=== PATIENT | female | born 1985 | race African-American/Black ===

== ENCOUNTER 2020-02-29 09:00 | Inpatient (IN) | payer OTHER ==
--- NOTE | 2020-02-29 09:30 | HP ---
Past Medical History - Admission Chief Complaint: chronic HTN at 39 weeks. History Source: Patient Limitations to Obtaining History: No Limitations - Past Medical History ...: 4 ...Para: 3 ...EDC by Debra: 03/02/20 - Past Surgical History Hx Myomectomy: No Hx Transabdominal Cerclage: No Additional Surgical History: ectopic - Smoking History Smoking history: Never smoked Have you smoked in the past 12 months: No - Alcohol/Substance Use Hx Alcohol Use: No History of Substance Use: reports: None - Social History Usual Living Arrangement: Yes: With Spouse Do you think of yourself as: Straight/Heterosexual History of Recent Travel: No Review of Systems - Review of Systems Constitutional: reports: No Symptoms Eyes: reports: No Symptoms HENT: reports: No Symptoms Neck: reports: No Symptoms Cardiovascular: reports: No Symptoms Respiratory: reports: No Symptoms Gastrointestinal: reports: No Symptoms Genitourinary: reports: No Symptoms Breasts: reports: No Symptoms Reported Musculoskeletal: reports: No Symptoms Integumentary: reports: No Symptoms Neurological: reports: No Symptoms Endocrine: reports: No Symptoms Hematology/Lymphatic: reports: No Symptoms Psychiatric: reports: No Symptoms Assessment/Plan imp IUP at 39+ weeks chronic HTN, plan induction of labor.
[2020-02-29] MEDS ORDERED: AMPICILLIN - 2 GM in SODIUM CHLORIDE 100 ML IVPB ONE (09:35)
[2020-02-29] MEDS ORDERED: AMPICILLIN - 1 GM in SODIUM CHLORIDE 100 ML IVPB SCH (09:45)
[2020-02-29] MEDS: ELECTROLYTE-148 SOLN 1,000 ML IV SCH (10:00)
[2020-02-29 10:26] VITALS: BMI 33.4
[2020-02-29 10:40] LABS: BASO % 0.9 % (0-2.0); EOS % 0.6 % (0-4.5); HEMATOCRIT 40.7 % (32.4-45.2); HEMOGLOBIN 13.8 GM/dL (10.7-15.3); LYMPH % 26.2 % (8-40); MCH 30.9 pg (25.7-33.7); MCHC 33.9 g/dl (32.0-36.0); MEAN CELL VOLUME 91.2 fl (80-96); MEAN PLT VOLUME 8.5 fl (7.5-11.1); MONO % 6.5 % (3.8-10.2); NEUT % 65.8 % (42.8-82.8); PLATELET COUNT 253 K/MM3 (134-434); RBC 4.46 M/mm3 (3.60-5.2); RDW 15.5 % (11.6-15.6); WHITE BLOOD COUNT 6.1 K/mm3 (4.0-10.0)
[2020-02-29 10:47] LABS: INR 0.95 (0.83-1.09); PROTHROMBIN TIME (PATIENT) 11.2 SEC (9.7-13.0)
[2020-02-29 11:07] LABS: BLOOD UREA NITROGEN 7.9 mg/dL (7-18); CALCIUM 9.5 mg/dL (8.5-10.1); CREATININE 0.7 mg/dL (0.55-1.3); POTASSIUM 3.9 mmol/L (3.5-5.1)
[2020-02-29] MEDS ORDERED: AMPICILLIN SODIUM 2 GM VIAL ONE (11:43)
[2020-02-29] MEDS ORDERED: DINOPROSTONE 10 MG VAGINAL SUPPOSITORY VG ONE ×2 (13:00→23:56)
[2020-02-29] MEDS: AMPICILLIN - 1 GM in SODIUM CHLORIDE 100 ML IVPB SCH ×2 (16:00→20:02)
[2020-02-29] MEDS ORDERED: AMPICILLIN SODIUM 1 GM VIAL ONE ×2 (16:04→19:57)
[2020-02-29] MEDS ORDERED: SODIUM CHLORIDE 100 ML IVPB ONE (19:57)
[2020-03-01] MEDS: AMPICILLIN - 1 GM in SODIUM CHLORIDE 100 ML IVPB SCH ×6 (00:04→20:15)
--- NOTE | 2020-03-01 00:04 | PN ---
Progress Note (short form) - Note Progress Note: 34 yo , EGA 39 weeks 5 days, with Chronic Hypertension on cervidil induction Afebrile. EFM - Baseline 140/min, moderate variability, accelerations, no decelerations Tocos - irritability Pelvic - 1cm/long/posterior Plan - Full term gestation on cervidil ripening Cervidil replaced. Anticipate vaginal delivery.
[2020-03-01] MEDS ORDERED: SODIUM CHLORIDE 100 ML IVPB ONE ×3 (00:09→20:13)
[2020-03-01] MEDS ORDERED: AMPICILLIN SODIUM 1 GM VIAL ONE ×6 (00:09→20:13)
[2020-03-01] MEDS: ELECTROLYTE-148 SOLN 1,000 ML IV SCH (09:00)
[2020-03-01] MEDS: LABETALOL HCL 200 MG TABLET (FP) PO SCH ×2 (10:30→22:38)
[2020-03-01] MEDS ORDERED: LABETALOL HCL 200 MG TABLET (FP) ONE ×2 (10:55→22:29)
[2020-03-01] MEDS ORDERED: DINOPROSTONE 10 MG VAGINAL SUPPOSITORY VG ONE ×2 (12:49→15:41)
--- NOTE | 2020-03-01 12:52 | PN ---
Progress Note (short form) - Note Progress Note: 34 y/o at 39w6d with CHTN undergoing IOL. Tracing category 1 Occasional contractions VE: 1/L/P Plan: Cervidil replaced Continue monitoring Reassess
--- NOTE | 2020-03-01 15:43 | PN ---
Progress Note (short form) - Note Progress Note: 34 y/o at 39w6d with CHTN undergoing IOL. Cervidil #3 fell out while patient ambulating - replaced. VE unchanged at 1/L/P.
[2020-03-02] MEDS: AMPICILLIN - 1 GM in SODIUM CHLORIDE 100 ML IVPB SCH ×6 (00:38→22:05)
[2020-03-02] MEDS ORDERED: SODIUM CHLORIDE 100 ML IVPB ONE ×3 (00:39→22:04)
[2020-03-02] MEDS ORDERED: AMPICILLIN SODIUM 1 GM VIAL ONE ×6 (00:39→22:04)
--- NOTE | 2020-03-02 09:35 | PN ---
Progress Note (short form) - Note Progress Note: pt without complaints. vss fhr: 140 reactive toco: irreg uc's ve: 09/21/soft/post. cervidil removed a/p iup at term iol for chr htn, gdm diet control s/p ripening w cervidil x 3 plan for po cytotec now per protocol pt. ate breakfast and would like a shower first now. will order 25 po to be given when back on monitor after shower (and > 30 min since cervidil removal). cont. close monitoring
[2020-03-02] MEDS ORDERED: LABETALOL HCL 200 MG TABLET (FP) ONE ×3 (10:20→22:05)
[2020-03-02] MEDS: LABETALOL HCL 200 MG TABLET (FP) PO SCH ×2 (10:22→22:05)
[2020-03-02] MEDS: MISOPROSTOL 100 MCG TABLET PV SCH ×3 (11:05→23:18)
[2020-03-02] MEDS: ELECTROLYTE-148 SOLN 1,000 ML IV SCH (12:50)
[2020-03-02] MEDS ORDERED: LABETALOL HCL 200 MG TABLET (FP) PO ONE (15:27)
[2020-03-02] MEDS ORDERED: MISOPROSTOL 100 MCG TABLET PO ONE (15:30)
[2020-03-02] MEDS ORDERED: OXYTOCIN 30 UNITS in 0.9% NS 30 UNIT/500 ML INFUS.BAG IVPB ONE (20:51)
[2020-03-02] MEDS: OXYTOCIN 30 UNITS in 0.9% NS 30 UNIT/500 ML INFUS.BAG IVPB SCH (20:52)
--- NOTE | 2020-03-02 21:07 | PN ---
Progress Note (short form) - Note Progress Note: 34 year old P2 at 39w+ undergoing IOL due to CHTN and GDM diet controlled On Labetalol s/p cervical ripening denies complaints VE -/-3 cat 1 tracing toco occasional contractions Plan Start Pitocin
[2020-03-03] MEDS ORDERED: OXYTOCIN 10 UNITS/ML VIAL ONE (01:30)
[2020-03-03] MEDS ORDERED: OXYTOCIN 20 UNITS in 0.9% NS 20 UNIT/1,000 ML INFUS.BAG IV ONE ×2 (01:31→06:04)
[2020-03-03] MEDS ORDERED: PROMETHAZINE HCL 25 MG/1 ML VIAL IVPB ONE (03:30)
[2020-03-03] MEDS ORDERED: BUTORPHANOL TARTRATE 1 MG/ML VIAL IVPB ONE (03:30)
[2020-03-03] MEDS ORDERED: BUTORPHANOL TARTRATE 1 MG/ML VIAL ONE ×2 (03:35)
[2020-03-03] MEDS ORDERED: PROMETHAZINE HCL 25 MG/1 ML VIAL ONE (03:35)
[2020-03-03] MEDS ORDERED: SODIUM CHLORIDE 100 ML IVPB ONE (04:01)
[2020-03-03] MEDS ORDERED: AMPICILLIN SODIUM 1 GM VIAL ONE (04:01)
[2020-03-03] MEDS: AMPICILLIN - 1 GM in SODIUM CHLORIDE 100 ML IVPB SCH ×2 (04:06→11:08)
--- NOTE | 2020-03-03 07:16 | PN ---
Progress Note (short form) - Note Progress Note: CHTN and GDM IOL Now in active labor s/p stadol and phenergan Complains of contractions VE /-3 Mod variability, Occ avery and early decels Irreg contractions Anticipate vag delivery
[2020-03-03] MEDS ORDERED: LABETALOL HCL 200 MG TABLET (FP) ONE (09:56)
[2020-03-03] MEDS: LABETALOL HCL 200 MG TABLET (FP) PO SCH ×2 (10:00→22:11)
[2020-03-03] MEDS: OXYTOCIN 20 UNITS in 0.9% NS 20 UNIT/1,000 ML INFUS.BAG IV SCH (10:00)
[2020-03-03] MEDS ORDERED: ACETAMINOPHEN 325 MG TABLET (FP) PO PRN (10:27)
[2020-03-03] MEDS ORDERED: IBUPROFEN 600 MG TABLET (FP) PO PRN (10:27)
[2020-03-03] MEDS ORDERED: BENZOCAINE 20% 57 GM BOTTLE TP PRN (10:27)
[2020-03-03] MEDS ORDERED: BENZOCAINE 28 GM HEMORRHOIDAL OINTMENT TP PRN (10:27)
[2020-03-03] MEDS ORDERED: BISACODYL 10 MG SUPP.RECT RC PRN (10:27)
[2020-03-03] MEDS ORDERED: METHYLERGONOVINE MALEATE 0.2 MG/1 ML AMP IM PRN (10:27)
[2020-03-03] MEDS ORDERED: WITCH HAZEL 50% (TUCKS) 40 PAD/JAR PAD TP PRN (10:27)
[2020-03-03] MEDS ORDERED: D5W-LR W/ 20 UNITS OXYTOCIN 20 UNIT/1,000 ML INFUS.BAG IV SCH (10:30)
--- NOTE | 2020-03-03 10:32 | PN ---
Delivery - Delivery Vaginal Delivery: No Problems, Spontaneous Type of Anesthesia: None Episiotomy/Laceration: None EBL (cc): 350 (, boy; intact perineum, abnormal cord insertion at edge) Delivery, Single - [place] Feeding Plan Initial Plan: Elected not to breastfeed exclusively throughout hospitalization
[2020-03-03] MEDS: MISOPROSTOL 100 MCG TABLET PV SCH ×2 (11:07→22:07)
[2020-03-03] MEDS: ELECTROLYTE-148 SOLN 1,000 ML IV SCH (17:13)
[2020-03-04 08:15] LABS: BASO % 0.3 % (0-2.0); EOS % 0.9 % (0-4.5); HEMATOCRIT 34.9 % (32.4-45.2); HEMOGLOBIN 11.6 GM/dL (10.7-15.3); LYMPH % 17.4 % (8-40); MCH 30.3 pg (25.7-33.7); MCHC 33.3 g/dl (32.0-36.0); MEAN CELL VOLUME 91.1 fl (80-96); MEAN PLT VOLUME 8.5 fl (7.5-11.1); MONO % 7.4 % (3.8-10.2); PLATELET COUNT 226 K/MM3 (134-434); RBC 3.83 M/mm3 (3.60-5.2); RDW 15.6 % (11.6-15.6); WHITE BLOOD COUNT 13.3 K/mm3 (4.0-10.0)
[2020-03-04] MEDS: LABETALOL HCL 200 MG TABLET (FP) PO SCH ×2 (10:12→22:28)
--- NOTE | 2020-03-04 12:14 | PN ---
Post Progress Note Post Day: 1 Type of Delivery: Vital Signs: Vital Signs Temperature 98.1 F 03/04/20 10:00 Pulse Rate 85 03/04/20 10:00 Respiratory Rate 18 03/04/20 10:00 Blood Pressure 121/77 03/04/20 10:00 O2 Sat by Pulse Oximetry (%) 100 03/03/20 11:15 Breast Exam: Yes: Soft Uterus: Yes: Fundus Firm, Fundus below umbilicus, Non-tender Abdomen/GI: Yes: Abdomen soft, Tolerating PO Lochia: Yes: Rubra Lochia, amount: Small Extremities: Yes: Calves non-tender Activity: Ambulating - Labs Labs: CBC WBC 13.3 K/mm3 (4.0-10.0) H 03/04/20 07:25 RBC 3.83 M/mm3 (3.60-5.2) 03/04/20 07:25 Hgb 11.6 GM/dL (10.7-15.3) 03/04/20 07:25 Hct 34.9 % (32.4-45.2) 03/04/20 07:25 MCV 91.1 fl (80-96) 03/04/20 07:25 MCH 30.3 pg (25.7-33.7) 03/04/20 07:25 MCHC 33.3 g/dl (32.0-36.0) 03/04/20 07:25 RDW 15.6 % (11.6-15.6) 03/04/20 07:25 Plt Count 226 K/MM3 (134-434) 03/04/20 07:25 MPV 8.5 fl (7.5-11.1) 03/04/20 07:25 Absolute Neuts (auto) 9.8 K/mm3 (1.5-8.0) H 03/04/20 07:25 Neutrophils % 74.0 % (42.8-82.8) 03/04/20 07:25 Lymphocytes % 17.4 % (8-40) D 03/04/20 07:25 Monocytes % 7.4 % (3.8-10.2) 03/04/20 07:25 Eosinophils % 0.9 % (0-4.5) 03/04/20 07:25 Basophils % 0.3 % (0-2.0) 03/04/20 07:25 Nucleated RBC % 0 % (0-0) 03/04/20 07:25 Assessment/Plan S/P , ppd # 1, no complaints Continue management.
[2020-03-04] MEDS: OXYTOCIN 30 UNITS in 0.9% NS 30 UNIT/500 ML INFUS.BAG IVPB SCH (19:03)
[2020-03-04] MEDS: MISOPROSTOL 100 MCG TABLET PV SCH (19:04)
[2020-03-04] MEDS: AMPICILLIN - 1 GM in SODIUM CHLORIDE 100 ML IVPB SCH ×2 (19:05→19:32)
[2020-03-04] MEDS: ELECTROLYTE-148 SOLN 1,000 ML IV SCH (19:05)
[2020-03-04] MEDS: OXYTOCIN 20 UNITS in 0.9% NS 20 UNIT/1,000 ML INFUS.BAG IV SCH (19:05)
[2020-03-04] MEDS ORDERED: SENNOSIDES/DOCUSATE COMBO (SENNA PLUS) TABLET (UD) PO PRN (22:00)
[2020-03-05] MEDS: LABETALOL HCL 200 MG TABLET (FP) PO SCH ×3 (09:30→21:22)
[2020-03-05] MEDS: NIFEdipine E.R. 30 MG TABLET PO SCH (16:52)
--- NOTE | 2020-03-05 16:53 | PN ---
Progress Note (short form) - Note Progress Note: pt. without complaints. denies LAWRENCE, visual disturbances or epigastric pain. BPs have been elevated to 140s-160s/80s-100s abd: soft, nt, nd, fundus firm ve: min lochia ext: dtr 1+/1+. 2+ edema b/l a/p ppd 2 s/p was iol for chr htn, gdm diet BPs elevated in labor intermittently and also now PP in same range was on labetalol 200 bid increased to 200 tid today and will add procardia 30 xl daily first dose now draw bloodwork (PET labs) above signed out to MD biofuels operations manager for further f/u , mgmt today. pt. aware unable to d/c to home today cont. close monitoring
[2020-03-05 18:55] LABS: BASO % 0.4 % (0-2.0); EOS % 2.2 % (0-4.5); HEMATOCRIT 38.6 % (32.4-45.2); HEMOGLOBIN 13.3 GM/dL (10.7-15.3); LYMPH % 29.4 % (8-40); MCH 31.6 pg (25.7-33.7); MCHC 34.4 g/dl (32.0-36.0); MEAN CELL VOLUME 92.1 fl (80-96); MEAN PLT VOLUME 8.6 fl (7.5-11.1); MONO % 7.3 % (3.8-10.2); NEUT % 60.7 % (42.8-82.8); PLATELET COUNT 257 K/MM3 (134-434); RBC 4.19 M/mm3 (3.60-5.2); RDW 15.6 % (11.6-15.6); WHITE BLOOD COUNT 10.6 K/mm3 (4.0-10.0)
[2020-03-05 19:06] LABS: INR 0.89 (0.83-1.09); PROTHROMBIN TIME (PATIENT) 10.5 SEC (9.7-13.0)
[2020-03-05 19:09] LABS: ACTIVATED PTT 25.8 SECONDS (25.2-36.5)
[2020-03-05 19:27] LABS: ALBUMIN 2.8 g/dl (3.4-5.0); BILIRUBIN,TOTAL 0.4 mg/dL (0.2-1); BLOOD UREA NITROGEN 9.8 mg/dL (7-18); CREATININE 0.8 mg/dL (0.55-1.3); POTASSIUM 3.9 mmol/L (3.5-5.1); URIC ACID 4.9 mg/dL (2.6-7.2)
[2020-03-06] MEDS: LABETALOL HCL 200 MG TABLET (FP) PO SCH ×2 (05:59→13:41)
[2020-03-06] MEDS: NIFEdipine E.R. 30 MG TABLET PO SCH (09:41)
[2020-03-06 10:15] VITALS: PULSE 76; TEMP 97.8
--- NOTE | 2020-03-06 12:28 | DS ---
Physical Exam-[employer] Vital Signs: Vital Signs Temperature 97.8 F 03/06/20 10:00 Pulse Rate 76 03/06/20 10:00 Respiratory Rate 20 03/06/20 10:00 Blood Pressure 132/83 03/06/20 10:00 O2 Sat by Pulse Oximetry (%) 100 03/03/20 11:15 Constitutional: Yes: No Distress Cardiovascular: Yes: Regular Rate and Rhythm Respiratory: Yes: Regular ....Post : Yes: Uterus firm, Slight lochia rubra Breast(s): Yes: WNL Musculoskeletal: Yes: WNL Extremities: Yes: WNL Edema: Yes Edema: LLE: 1+, RLE: 1+ Labs: CBC, BMP 03/05/20 17:50 03/05/20 17:50 Delivery - Delivery Vaginal Delivery: No Problems, Spontaneous Type of Anesthesia: None Episiotomy/Laceration: None EBL (cc): 350 (, boy; intact perineum, abnormal cord insertion at edge) Delivery, Single - Stages of Labor Date 1st Stage Initiatied: 03/02/20 Time 1st Stage Initiated: 21:00 Date 2nd Stage Initiated: 03/03/20 Time 2nd Stage Initiated: 09:25 Date of Delivery: 03/03/20 Time of Delivery: 09:33 Time Placenta Delivered: 09:40 - Condition of Infant Cad Draftsman/Development Vice President Present: [place]: Sada Samaniego Gender: Male Weight: 3.118 kg Position: Left, OA Total Hours ROM (Hrs/Mins): 11hrs/50mins - 1 Minute Total Score: 9 5 Minutes Total Score: 9 - Feeding Plan Initial Plan: Elected not to breastfeed exclusively throughout hospitalization Remarks - Remarks Remarks: PP day 3 HTN denies LAWRENCE discharge on labetolol and procardia follow up in clinic one week and refer to medical clinic also Discharge Summary Problems reviewed: Yes Reason For Visit: INDUCTION OF LABOR Plan of Treatment: follow up at office and PCP in one week Condition: Good - Instructions Diet, Activity, Other Instructions: regular Referrals: Oj Garcia MD [Staff Physician] - Disposition: HOME - Home Medications Comprehensive Discharge Medication List: Ambulatory Orders Labetalol HCl [Normodyne -] 200 mg PO BID 02/29/20 Pnv No.95/Ferrous Fum/Folic AC [ Formula] 1 each PO DAILY 02/29/20
[2020-03-06 13:51] VITALS: BP 138/95
== END 2020-03-06 15:40 | disposition home or self-care (01) | DRG 807 ==
LOC: JLDR 09:00 → J3W 03-03 11:30
PROVIDERS: ADMIT Specialist; ATTEND Specialist
PROC: 3E0P7VZ Introduction of Hormone into Female Reproductive, Via Natural or Artificial Opening (ICD-10-PCS; 2020-02-29)
PROC: 3E033VJ Introduction of Other Hormone into Peripheral Vein, Percutaneous Approach (ICD-10-PCS; 2020-03-02)
PROC: 10E0XZZ Delivery of Products of Conception, External Approach (ICD-10-PCS; principal; 2020-03-03)
DX: O24.420 Gestational diabetes mellitus in childbirth, diet controlled (principal); Z37.0 Single live birth; Z3A.39 39 weeks gestation of pregnancy; O13.4 Gestational [pregnancy-induced] hypertension without significant proteinuria, complicating childbirth; O13.5 Gestational [pregnancy-induced] hypertension without significant proteinuria, complicating the puerperium; O99.825 Streptococcus B carrier state complicating the puerperium
CPT/HCPCS: 36415; 59409; 80048; 80053; 82962; 84550; 85025; 85610; 85730; 86780; 86850; 86900; 86901; U0003